=== PATIENT | male | born 1980 | race Caucasian/White ===

== ENCOUNTER 2019-03-26 03:38 | Emergency (ER) | payer OTHER ==
[~2019-03-26] VITALS: Ht 180.3 cm; Wt 90.7 kg
--- NOTE | 2019-03-26 03:38 | NUR ---
ED Nurse Note: pt arrived with ra 829 due to ETOH. pt appears to be falling asleeping and has vomiting. iv line initiated per verbal order by ermd. line intact and patent. blood specimen collected and sent to lab
[2019-03-26 03:39] VITALS: BP 108/71
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
[2019-03-26 04:56] VITALS: BP 113/69
--- NOTE | 2019-03-26 04:56 | NUR ---
ED Nurse Note: pt in bed resting. IV fluids completed. vss.
[2019-03-26 05:19] VITALS: BP 115/71
--- NOTE | 2019-03-26 05:20 | NUR ---
ED Nurse Note: pt dc per ermd order. pt is able to ambulate with steady gait. pt called private vehicle as mode of transportation. dc instructions given to pt and pt verbalized understanding. pt id band and iv site removed without complications. pt took all belongings.
== END 2019-03-26 05:20 | disposition home or self-care (01) ==
LOC: EDBD 03:38 → EMR 03:45
DX: F10.129 Alcohol abuse with intoxication, unspecified (principal)
CPT/HCPCS: 36415; 96361; 96374; 99284; G0480; J2405; J7030